=== PATIENT | male | born 1985 | race Caucasian/White ===

== ENCOUNTER 2019-09-17 08:51 | Emergency (ER) | payer SELFPAY ==
[~2019-09-17] VITALS: Ht 188 cm; Wt 108.9 kg
[2019-09-17 09:03] VITALS: BP 134/101
--- NOTE | 2019-09-17 09:06 | NUR ---
PATIENT AMBULATED TO BED 9.
--- NOTE | 2019-09-17 09:25 | NUR ---
C/O SOB & SHARP CHEST PAIN RADIATING TO BACK 11/11 X1 WEEK, ACCOMPANIED BY A HACKING COUGH WITH PHLEGM. PT DENIES FEVER, N/V/D. PT STATES HE WAS TESTED FOR COVID 09/15/19 AND HIS RESULTS CAME BACK NEGATIVE. RESPIRATIONS ARE EVEN AND UNLABORED, NO ACCESORY MUSCLE USE NOTED. LUNG SOUNDS CAEBL. 02 SAT RA 98%. SKIN COOL/DRY. PT PLACED ON BEDSIDE CARIAC MONITOR, BED IN LOW POSITION, SIDE RAIL UP X1.
[2019-09-17] MEDS ORDERED: KETOROLAC 60 MG/2 ML VIAL IM ONE (09:35)
--- NOTE | 2019-09-17 09:35 | NUR ---
DR. BANEGAS AT [facility] PT
[2019-09-17 10:16] VITALS: BP 134/101
--- NOTE | 2019-09-17 10:18 | NUR ---
Patient discharged with v/s stable. Written and verbal after care instructions given and explained. Patient alert, oriented and verbalized understanding of instructions. Ambulatory with steady gait. All questions addressed prior to discharge. ID band removed. Patient advised to follow up with PMD. Rx of prednisone, ibuprofen given. Patient educated on indication of medication including possible reaction and side effects. Opportunity to ask questions provided and answered.
== END 2019-09-17 10:18 | disposition home or self-care (01) ==
LOC: MED 08:51 → EEVIPCON 08:51 → MED 10:18
DX: R05 Cough (principal); R07.9 Chest pain, unspecified; R06.02 Shortness of breath; J45.909 Unspecified asthma, uncomplicated; F17.210 Nicotine dependence, cigarettes, uncomplicated
CPT/HCPCS: 93005; 96372; 99283; J1885